=== PATIENT | female | born 1940 | race Caucasian/White ===

== ENCOUNTER 2018-03-12 09:41 | Outpatient (CLI) | payer MEDICARE, BC ==
--- NOTE | 2018-03-12 12:30 | RAD ---
ESOPHOGRAM: History: Dysphagia. Radiation dosimetry: 1.6 minutes fluoroscopy, [place] 52.8 mGy*cm^2. FINDINGS: Suspension of barium sulfate was given orally. Spot and overhead images were obtained. The esophagus is unremarkable with no evidence of masses or lesions. Some mild to moderate gastroesop hageal reflux is seen. No definite evidence of esophageal structures, webs, or bands seen. IMPRESSION: Gastroesophageal reflux without evidence of esophageal masses or lesions. POS: JOHN
== END 2018-03-12 09:42 | disposition home or self-care (01) ==
LOC: RAD 09:41
PROVIDERS: ATTEND Internal Medicine
DX: R13.12 Dysphagia, oropharyngeal phase (principal); K21.9 Gastro-esophageal reflux disease without esophagitis
CPT/HCPCS: 74220